=== PATIENT | male | born 1955 | race Caucasian/White ===

== ENCOUNTER 2017-01-31 09:15 | Outpatient (CLI) | payer OTHER ==
[2017-01-31 17:52] LABS: BASOPHILS % (AUTO) 0.2 %; EOSINOPHILS # (AUTO) 0.1 10^3/uL (0.0-0.7); EOSINOPHILS % (AUTO) 1.3 %; HCT - HEMATOCRIT 47.8 % (42.0-52.0); HGB - HEMOGLOBIN 15.8 g/dL (14.0-18.0); LYMPHOCYTES % (AUTO) 21.8 %; MEAN CORPUSCULAR VOLUME 90.9 fL (80.0-94.0); MEAN PLATELET VOLUME 8.3 fL (7.4-11.4); MONOCYTES # (AUTO) 0.5 10^3/uL (0.0-1.0); MONOCYTES % (AUTO) 5.9 %; NEUTROPHILS # (AUTO) 6.6 10^3/uL (1.5-6.6); NEUTROPHILS % (AUTO) 70.8 %; RED BLOOD COUNT 5.26 10^6/uL (4.70-6.10); RED CELL DISTRIBUTION WIDTH 14.1 % (12.0-15.0); UNCORRECTED WHITE BLOOD COUNT 9.3 x10^3/uL; WHITE BLOOD COUNT 9.3 x10^3/uL (4.8-10.8)
[2017-01-31 18:03] LABS: ALBUMIN/GLOBULIN RATIO 1.6 (1.0-2.2); BILIRUBIN,TOTAL 0.7 mg/dL (0.2-1.0); BUN - BLOOD UREA NITROGEN 22 mg/dL (6-20); CALCIUM 9.2 mg/dL (8.5-10.3); CARBON DIOXIDE - CO2 27 mmol/L (21-32); CHLORIDE 104 mmol/L (101-111); CHOLESTEROL 215 mg/dL; CREATININE 1.1 mg/dL (0.6-1.2); GFR - MDRD 68 (>89); GLUCOSE 97 mg/dL (70-100); HDL CHOLESTEROL 54 mg/dL; LDL/HDL RATIO 2.6 (<3.6); POTASSIUM 4.3 mmol/L (3.5-5.0); SODIUM 138 mmol/L (135-145); TOTAL PROTEIN 6.7 g/dL (6.7-8.2); TRIGLYCERIDES 88 mg/dL; VLDL CHOLESTEROL 18 mg/dL
[2017-01-31 18:26] LABS: THYROID STIMULATING HORMONE 1.19 uIU/mL (0.34-5.60)
[2017-01-31 18:33] LABS: FERRITIN 334.8 ng/mL (23.9-336.2); TOTAL T3 1.26 ng/mL (0.87-1.78)
[2017-01-31 19:47] LABS: PSA FREE 0.213 ng/mL (0.16-2.81)
[2017-01-31 19:48] LABS: PSA TOTAL 1.175 ng/mL (0.000-2.000)
[2017-01-31 19:51] LABS: FREE T3 3.44 pg/mL (2.5-3.9)
== END 2017-01-31 09:16 | disposition home or self-care (01) ==
LOC: LAB.F 09:15
PROVIDERS: ATTEND Family Medicine
DX: Z00.00 Encounter for general adult medical examination without abnormal findings (principal); E55.9 Vitamin D deficiency, unspecified; N40.1 Benign prostatic hyperplasia with lower urinary tract symptoms
CPT/HCPCS: 36415; 80053; 80061; 82306; 82728; 84154; 84439; 84443; 84480; 84481; 84482; 85025

== ENCOUNTER 2018-01-30 07:42 | Outpatient (CLI) | payer OTHER ==
[2018-01-30 10:57] LABS: BASOPHILS % (AUTO) 0.2 %; EOSINOPHILS # (AUTO) 0.1 10^3/uL (0.0-0.7); EOSINOPHILS % (AUTO) 1.4 %; HGB - HEMOGLOBIN 15.7 g/dL (14.0-18.0); LYMPHOCYTES % (AUTO) 26.9 %; MEAN CORPUSCULAR HEMOGLOBIN 30.6 pg (27.0-31.0); MEAN CORPUSCULAR HGB CONC 34.2 g/dL (32.0-36.0); MEAN CORPUSCULAR VOLUME 89.7 fL (80.0-94.0); MEAN PLATELET VOLUME 8.3 fL (7.4-11.4); MONOCYTES # (AUTO) 0.5 10^3/uL (0.0-1.0); MONOCYTES % (AUTO) 6.1 %; NEUTROPHILS # (AUTO) 4.9 10^3/uL (1.5-6.6); NEUTROPHILS % (AUTO) 65.4 %; PLT - PLATELET COUNT 258 10^3/uL (130-450); RED BLOOD COUNT 5.13 10^6/uL (4.70-6.10); RED CELL DISTRIBUTION WIDTH 13.6 % (12.0-15.0); WHITE BLOOD COUNT 7.5 x10^3/uL (4.8-10.8)
[2018-01-30 11:14] LABS: ALBUMIN 4.1 g/dL (3.2-5.5); ALBUMIN/GLOBULIN RATIO 1.5 (1.0-2.2); ALKALINE PHOSPHATASE 72 IU/L (42-121); ALT ALANINE AMINOTRANSFERASE 28 IU/L (10-60); AST ASPARTATE AMINOTRANSFERASE 23 IU/L (10-42); BUN - BLOOD UREA NITROGEN 22 mg/dL (6-20); CARBON DIOXIDE - CO2 28 mmol/L (21-32); CHLORIDE 104 mmol/L (101-111); CHOL/HDL RATIO 3.8 (<5.0); CHOLESTEROL 226 mg/dL; GFR - MDRD 75 (>89); GLUCOSE 97 mg/dL (70-100); HDL CHOLESTEROL 59 mg/dL; LDL CHOLESTEROL,CALCULATED 153 mg/dL; LDL/HDL RATIO 2.6 (<3.6); SODIUM 139 mmol/L (135-145); TOTAL PROTEIN 6.8 g/dL (6.7-8.2); VLDL CHOLESTEROL 14 mg/dL
[2018-01-30 11:21] LABS: PSA FREE 0.341 ng/mL (0.16-2.81)
[2018-01-30 11:22] LABS: PSA TOTAL 1.436 ng/mL (0.000-2.000)
[2018-01-30 11:25] LABS: FREE T3 3.72 pg/mL (2.5-3.9)
[2018-01-30 11:26] LABS: THYROID STIMULATING HORMONE 1.43 uIU/mL (0.34-5.60)
[2018-01-30 11:28] LABS: FREE T4 (FREE THYROXINE) 0.71 ng/dL (0.58-1.64)
[2018-01-30 11:33] LABS: FERRITIN 359.8 ng/mL (23.9-336.2); TOTAL T3 1.52 ng/mL (0.87-1.78)
[2018-01-30 14:18] LABS: HB2 TOTAL 16.8 g/dL; HEMOGLOBIN A1C 0.59 g/dL; HEMOGLOBIN A1C % 5.4 % (4.6-6.2)
[2018-02-02 10:57] LABS: HOMOCYSTEINE 12.9 umol/L (<11.4)
== END 2018-01-30 07:43 | disposition home or self-care (01) ==
LOC: LAB.F 07:42
PROVIDERS: ATTEND Family Medicine
DX: Z00.00 Encounter for general adult medical examination without abnormal findings (principal); R53.83 Other fatigue; E55.9 Vitamin D deficiency, unspecified; E03.9 Hypothyroidism, unspecified
CPT/HCPCS: 36415; 80053; 80061; 82306; 82626; 82728; 83036; 83090; 83721; 84154; 84439; 84443; 84480; 84481; 84482; 85025

== ENCOUNTER 2020-12-01 09:07 | Outpatient (CLI) | payer MEDICARE, OTHER ==
[2020-12-01 14:37] LABS: BASOPHILS % (AUTO) 0.4 %; EOSINOPHILS # (AUTO) 0.1 10^3/uL (0.0-0.7); EOSINOPHILS % (AUTO) 1.3 %; HCT - HEMATOCRIT 51.5 % (42.0-52.0); HGB - HEMOGLOBIN 16.6 g/dL (14.0-18.0); LYMPHOCYTES # (AUTO) 2.4 10^3/uL (1.5-3.5); LYMPHOCYTES % (AUTO) 25.2 %; MEAN CORPUSCULAR HEMOGLOBIN 30.3 pg (27.0-31.0); MEAN CORPUSCULAR HGB CONC 32.2 g/dL (32.0-36.0); MEAN PLATELET VOLUME 10.3 fL (7.4-11.4); MONOCYTES # (AUTO) 0.5 10^3/uL (0.0-1.0); MONOCYTES % (AUTO) 5.3 %; NEUTROPHILS # (AUTO) 6.6 10^3/uL (1.5-6.6); NEUTROPHILS % (AUTO) 67.5 %; PLT - PLATELET COUNT 266 10^3/uL (130-450); RED BLOOD COUNT 5.48 10^6/uL (4.70-6.10); RED CELL DISTRIBUTION WIDTH 13.9 % (12.0-15.0); WHITE BLOOD COUNT 9.7 x10^3/uL (4.8-10.8)
[2020-12-01 15:50] LABS: ALBUMIN 4.4 g/dL (3.2-5.5); ALBUMIN/GLOBULIN RATIO 1.6 (1.0-2.2); ALKALINE PHOSPHATASE 75 IU/L (42-121); ALT ALANINE AMINOTRANSFERASE 30 IU/L (10-60); AST ASPARTATE AMINOTRANSFERASE 24 IU/L (10-42); BILIRUBIN,TOTAL 0.6 mg/dL (0.2-1.0); BUN - BLOOD UREA NITROGEN 23 mg/dL (6-20); CALCIUM 9.1 mg/dL (8.5-10.3); CARBON DIOXIDE - CO2 27 mmol/L (21-32); CHLORIDE 102 mmol/L (101-111); CHOL/HDL RATIO 4.1 (<5.0); CHOLESTEROL 278 mg/dL; CREATININE 1.1 mg/dL (0.6-1.2); CRP HIGH SENSITIVITY 1.2 mg/L; GFR - MDRD 67 (>89); GLUCOSE 99 mg/dL (70-100); HDL CHOLESTEROL 68 mg/dL; LDL CHOLESTEROL,CALCULATED 192 mg/dL; LDL/HDL RATIO 2.8 (<3.6); POTASSIUM 4.2 mmol/L (3.5-5.0); SODIUM 138 mmol/L (135-145); TOTAL PROTEIN 7.2 g/dL (6.7-8.2); TRIGLYCERIDES 91 mg/dL; VLDL CHOLESTEROL 18 mg/dL
[2020-12-01 15:57] LABS: PSA FREE 0.25 ng/mL (0.16-2.81)
[2020-12-01 15:59] LABS: PSA TOTAL 1.349 ng/mL (0.000-2.000)
[2020-12-01 16:06] LABS: THYROID STIMULATING HORMONE 1.29 uIU/mL (0.34-5.60)
[2020-12-01 16:07] LABS: FREE T4 (FREE THYROXINE) 0.65 ng/dL (0.58-1.64)
[2020-12-01 16:08] LABS: FREE T3 3.47 pg/mL (2.5-3.9)
[2020-12-01 16:12] LABS: FERRITIN 322.3 ng/mL (23.9-336.2)
[2020-12-01 21:01] LABS: ESTIMATED AVERAGE GLUCOSE 114 mg/dL (70-100); HEMOGLOBIN A1c% 5.6 % (4.27-6.07)
== END 2020-12-01 09:08 | disposition home or self-care (01) ==
LOC: LAB.S 09:07
PROVIDERS: ATTEND Family Medicine
DX: E78.5 Hyperlipidemia, unspecified (principal); R53.83 Other fatigue; D64.9 Anemia, unspecified; E55.9 Vitamin D deficiency, unspecified; R73.09 Other abnormal glucose; E03.9 Hypothyroidism, unspecified; N40.0 Benign prostatic hyperplasia without lower urinary tract symptoms
CPT/HCPCS: 36415; 80053; 80061; 82306; 82626; 82728; 83036; 83090; 83721; 84153; 84154; 84439; 84443; 84480; 84481; 84482; 85025; 86141

== ENCOUNTER 2021-04-20 09:15 | Outpatient (CLI) | payer MEDICARE, OTHER ==
[2021-04-20 14:51] LABS: ALBUMIN 4.1 g/dL (3.2-5.5); ALBUMIN/GLOBULIN RATIO 1.4 (1.0-2.2); ALKALINE PHOSPHATASE 77 IU/L (42-121); ALT ALANINE AMINOTRANSFERASE 22 IU/L (10-60); AST ASPARTATE AMINOTRANSFERASE 22 IU/L (10-42); BILIRUBIN,TOTAL 0.7 mg/dL (0.2-1.0); BUN - BLOOD UREA NITROGEN 25 mg/dL (6-20); CALCIUM 9.5 mg/dL (8.5-10.3); CARBON DIOXIDE - CO2 27 mmol/L (21-32); CHLORIDE 103 mmol/L (101-111); CHOL/HDL RATIO 3.5 (<5.0); CHOLESTEROL 234 mg/dL; CREATININE 1.1 mg/dL (0.6-1.2); CRP HIGH SENSITIVITY 1.4 mg/L; GFR - MDRD 67 (>89); GLUCOSE 108 mg/dL (70-100); HDL CHOLESTEROL 66 mg/dL; LDL CHOLESTEROL,CALCULATED 155 mg/dL; LDL/HDL RATIO 2.3 (<3.6); POTASSIUM 4.5 mmol/L (3.5-5.0); SODIUM 138 mmol/L (135-145); TRIGLYCERIDES 63 mg/dL; VLDL CHOLESTEROL 13 mg/dL
[2021-04-20 21:24] LABS: ESTIMATED AVERAGE GLUCOSE 111 mg/dL (70-100); HEMOGLOBIN A1c% 5.5 % (4.27-6.07)
[2021-04-21 12:11] LABS: HOMOCYSTEINE 13.5 umol/L (<11.4)
== END 2021-04-20 09:16 | disposition home or self-care (01) ==
LOC: LAB.S 09:15
PROVIDERS: ATTEND Family Medicine
DX: E78.5 Hyperlipidemia, unspecified (principal); R73.09 Other abnormal glucose; R53.83 Other fatigue
CPT/HCPCS: 36415; 80053; 80061; 82626; 83036; 83090; 83721; 86141

== ENCOUNTER 2021-11-21 07:08 | Day surgery (SDC) | payer MEDICARE, OTHER ==
[2021-11-21] MEDS ORDERED: LACTATED RINGERS 1,000 ML IV ONE ×2 (07:26→09:33)
[2021-11-21] MEDS ORDERED: PROPOFOL 500 MG/50 ML 500 MG/50 ML VIAL ONE (09:13)
--- NOTE | 2021-11-21 09:29 | ANESTHESIA ---
Pre-Anesthesia VS, & Labs - Diagnosis hx of polyps - Procedure colonoscopy Vital Signs: Temp Pulse Resp BP Pulse Ox 36.4 C L 73 16 129/99 H 100 11/21/21 07:26 11/21/21 07:26 11/21/21 07:26 11/21/21 07:26 11/21/21 07:26 Height: 6 ft Weight (kg): 79.4 kg Body Mass Index: 23.7 BMI Classification: Healthy weight - NPO >8 hours Home Medications and Allergies Home Medications: Ambulatory Orders No Known Home Medications 11/16/21 No Known Home Medications 11/16/21 Allergies/Adverse Reactions: Allergies Allergy/AdvReac Type Severity Reaction Status Date / Time Penicillins Allergy Unknown Verified 11/21/21 06:56 Anes History & Medical History - Anesthetic History Anesthesia Complications: reports: No previous complications Family history of Anesthesia Complications: Denies Family history of Malignant Hyperthermia: Denies - Medical History Cardiovascular: reports: None Pulmonary: reports: Sleep apnea Gastrointestinal: reports: Colon polyps Urinary: reports: None Musculoskeletal: reports: None Endocrine/Autoimmune: reports: None Skin: reports: None Smoking Status: Current every day smoker - Surgical History General: reports: Colonoscopy Orthopedic: reports: Arthroscopic surgery Exam General: Alert, Oriented x3 Dental: WNL Mouth Openin Fingerbreadth Neck Mobility: Normal Mallampati classification: II Thyromental Distance: 4-6 cm Respiratory: Lungs clear Cardiovascular: Regular rate Plan Anesthesia Type: Total IV Consent for Procedure(s) Verified and Reviewed: Yes Code Status: Attempt Resuscitation ASA classification: 2-Mild systemic disease Is this case an emergency?: No
[2021-11-21] MEDS ORDERED: ONDANSETRON 4 MG/2 ML VIAL ONE (09:37)
[2021-11-21 10:03] VITALS: BP 109/76
--- NOTE | 2021-11-21 13:18 | ANESTHESIA POST OP EVALUATION ---
Anesthesia Post Eval - Post Anesthesia Eval Vitals: Last Vital Signs Temp 36.6 C 11/21/21 10:00 Pulse 65 11/21/21 10:00 Resp 16 11/21/21 10:00 BP 109/76 11/21/21 10:00 Pulse Ox 100 11/21/21 10:00 CV Function Including HR & BP: Stable Pain Control: Satisfactory Nausea & Vomiting: Negative Mental Status: Baseline Respiratory Status: Airway Patent Hydration Status: Satisfactory Anesthesia Complications: None
== END 2021-11-21 07:09 | disposition home or self-care (01) ==
LOC: SDS 07:08
PROVIDERS: ATTEND Surgery
DX: Z12.11 Encounter for screening for malignant neoplasm of colon (principal); K64.8 Other hemorrhoids; G47.30 Sleep apnea, unspecified; F17.200 Nicotine dependence, unspecified, uncomplicated; Z86.010 Personal history of colon polyps
CPT/HCPCS: G0105; J7120

== ENCOUNTER 2022-02-06 09:14 | Outpatient (CLI) | payer MEDICARE, OTHER ==
--- NOTE | 2022-02-06 09:12 | SLEEP CARE CONSULTATION ---
Information from patient questionnaire entered by Layla Lerma. I have reviewed and concur with the information entered by Layla Lerma. This document represents the service I personally performed and the decisions made by , Haylee Ross ARNP. History of Present Illness Service Date and Time: 02/06/2022 0840 Previous diagnosis: Mild, Obstructive Sleep Apnea-Hypopnea Syndrome AHI: 7.9 Reason for follow up: first compliance (RESMED ) Equipment type: CPAP (RESMED) Equipment obtained from: [employer] (got initial supplies) Mask style: Full face Mask brand: Resmed ([id number]) Backup mask available: No (will keep old mask when replaced) Last cushion change: 1 month Prior sleep studies: Yes Year and Where: 04/2021 Type of Sleep Study: Home sleep study HPI additional information: ESTELITA BAE was diagnosed to have mild, AHI 7.9, obstructive sleep apnea- hypopnea syndrome and returns via video telehealth visit today for CPAP therapy first compliance follow-up. Sleep Study - Results Type of Sleep Study: Home sleep study Prior sleep studies: Yes Year and Where: 04/2021 CPAP Compliance Data - Data Reviewed with Patient Average duration of nightly device use: 6 HRS, 19 MIN Compliance rate %: 83 (01/06/2022-02/04/2022; 27/30 days used) Current pressure setting (cmH2O): 4-15 (median 4.8, avg 8.5, max 10.3) Average residual AHI: 4.0 Central apnea: 0.2 Obstructive apnea: 0.7 Average large leak: 14.5 lpm Subjective Missed days of use due to: reports: illness, travel Patient concerns: reports: dry mouth, nose, throat (occasional dry throat). denies: aerophagia, mask discomfort, air blowing in eyes, mask leak noise, condensation in mask/hose, nasal congestion, epistaxis Observed to snore while using device: No Current pressure setting perceived as: comfortable On therapy, patient: reports: sleeping better, awakening more refreshed, being more awake and alert during the day, more rested overall. denies: drowsiness while driving Initial [place] Sleepiness Scale score: 9 (11/02/2021) Current [place] Sleepiness Scale score: 3 (02/06/2022) Allergies and Home Medications Known drug allergies: Yes (PCN) Drug allergies reviewed: Yes (penicillin) Home medication list reviewed: Yes (no changes) Review of Systems Review of systems same as previous: Yes (no changes) Physical Exam Vital signs obtained and entered by: VIA PHONE Height: 6 ft (PER PT ) Weight: 180 lb (PER PT ) Body Mass Index: 24.4 BMI Classification: Normal Impression and Plan 1. Obstructive Sleep Apnea-Hypopnea Syndrome, mild, with good treatment compliance and good apnea control. On CPAP therapy, the patient has better sleep quality and is more rested overall. Patient has significant improvement of their sleep apnea and are satisfied with current CPAP therapy. The patients pressure will be changed to autoCPAP 7-11 cmH20 to reflect pressures being used. Patient advised to contact me if pressure change is uncomfortable so that it can be adjusted. Goals for apnea control discussed. Patient's apnea severity and rationale for treatment to reduce apnea, improve sleep quality and reduce cardiovascular and cerebrovascular events was reviewed. * Change auto CPAP pressure to 7-11 cmH2O * Notify me if snoring with mask or feeling that the pressure is too much or too little * Maintain healthy weight * Call this office if any problems using CPAP * Return for follow up in 1-2 months, or sooner if concerns arise Counseling Topics: Spare mask Visit Type: Telehealth Video Video Type: Doximity Patient Location: Home Location of Provider: Office Patient agrees and consents to this telehealth visit type: Yes Patient agrees to have their insurance billed: Yes Time Spent with Patient (minutes): 29 Provider Statement: I spent 100% of the Telehealth Video Call with the patient with greater than 50% spent counseling the patient and coordination of care.
== END 2022-02-06 09:15 | disposition home or self-care (01) ==
LOC: SC 09:14
PROVIDERS: ATTEND Nurse Practitioner Family
DX: G47.33 Obstructive sleep apnea (adult) (pediatric) (principal)

== ENCOUNTER 2022-04-05 09:00 | Outpatient (CLI) | payer MEDICARE, OTHER ==
--- NOTE | 2022-04-05 09:17 | SLEEP CARE CONSULTATION ---
Information from patient questionnaire entered by Chito Lerma. I have reviewed and concur with the information entered by Chito Lerma. This document represents the service I personally performed and the decisions made by , Haylee Ross ARNP. History of Present Illness Service Date and Time: 04/05/2022 0900 Previous diagnosis: Mild, Obstructive Sleep Apnea-Hypopnea Syndrome AHI: 7.9 Reason for follow up: other (TWO MONTH F/U ) Equipment type: CPAP (RESMED Airsense 11, s/u 11/2021) Equipment obtained from: [employer] (getting supplies) Mask style: Full face Backup mask available: No (will keep old mask when replaced) Last cushion change: 5 months Prior sleep studies: Yes Year and Where: 04/2021 Type of Sleep Study: Home sleep study HPI additional information: ESTELITA BAE was diagnosed to have mild, AHI 7.9, obstructive sleep apnea- hypopnea syndrome and returns via video telehealth visit today for CPAP therapy two month follow-up. Sleep Study - Results Type of Sleep Study: Home sleep study Prior sleep studies: Yes Year and Where: 04/2021 CPAP Compliance Data - Data Reviewed with Patient Average duration of nightly device use: 6 HRS 16 MIN Compliance rate %: 80 (02/01/22-04/01/22; 52/60 days used) Current pressure setting (cmH2O): 7-11 Average residual AHI: 3.3 Central apnea: 0.2 Obstructive apnea: 0.4 Average large leak: 13.9 lpm Subjective Missed days of use due to: reports: travel Patient concerns: reports: dry mouth, nose, throat (occasionally). denies: aerophagia, mask discomfort, air blowing in eyes, mask leak noise, condensation in mask/hose, nasal congestion, epistaxis Observed to snore while using device: No Current pressure setting perceived as: comfortable On therapy, patient: reports: sleeping better, awakening more refreshed, being more awake and alert during the day, more rested overall. denies: drowsiness while driving Initial [place] Sleepiness Scale score: 9 (11/02/2021) Current [place] Sleepiness Scale score: 8 (04/05/2022) Allergies and Home Medications Drug allergies reviewed: Yes (penicillin) Home medication list reviewed: Yes (no changes) Review of Systems Review of systems same as previous: Yes (no changes) Physical Exam Vital signs obtained and entered by: VIA PHONE CHITO Haynes MA Height: 6 ft (PER PT ) Weight: 175 lb (PER PT) Body Mass Index: 23.7 BMI Classification: Normal Impression and Plan 1. Obstructive Sleep Apnea-Hypopnea Syndrome, mild, with good treatment compliance and good apnea control. On CPAP therapy, the patient has better sleep quality and is more rested overall. Patient is comfortable using his fullface mask but he would like to try something with less size on his face. He would like to try a nasal mask. I will write for a mask fitting for a nasal mask. He is aware that he may end up paying if he is not eligible for supplies. Patient has significant improvement of their sleep apnea and are satisfied with current CPAP therapy. Patient has some occasional mouth dryness but states it is not problematic. Patient denies problems with nasal congestion, epistaxis, skin irritation or aerophagia. Patient's apnea severity and rationale for treatment to reduce apnea, improve sleep quality and reduce cardiovascular and cerebrovascular events was reviewed. * Continue auto CPAP pressure at 7-11 cmH2O * Mask fitting for a nasal mask * Notify me if snoring with mask or feeling that the pressure is too much or too little * Call this office if any problems using CPAP * Return for follow up in 6 months, or sooner if concerns arise Counseling Topics: Spare mask Visit Type: Telehealth Video Video Type: Doximity Patient Location: Home Location of Provider: Office Patient agrees and consents to this telehealth visit type: Yes Patient agrees to have their insurance billed: Yes Time Spent with Patient (minutes): 16 Provider Statement: I spent 100% of the Telehealth Video Call with the patient with greater than 50% spent counseling the patient and coordination of care.
== END 2022-04-05 23:59 | disposition home or self-care (01) ==
LOC: SC 09:00
PROVIDERS: ATTEND Nurse Practitioner Family
DX: G47.33 Obstructive sleep apnea (adult) (pediatric) (principal)

== ENCOUNTER 2023-02-07 08:21 | Outpatient (CLI) | payer MEDICARE, OTHER ==
[2023-02-07 14:57] LABS: BASOPHILS % (AUTO) 0.3 %; EOSINOPHILS # (AUTO) 0.1 10^3/uL (0.0-0.7); EOSINOPHILS % (AUTO) 1.2 %; HCT - HEMATOCRIT 50.2 % (42.0-52.0); HGB - HEMOGLOBIN 15.9 g/dL (14.0-18.0); LYMPHOCYTES # (AUTO) 2.3 10^3/uL (1.5-3.5); LYMPHOCYTES % (AUTO) 20.7 %; MEAN CORPUSCULAR HEMOGLOBIN 29.8 pg (27.0-31.0); MEAN CORPUSCULAR HGB CONC 31.7 g/dL (32.0-36.0); MEAN PLATELET VOLUME 10.5 fL (7.4-11.4); MONOCYTES # (AUTO) 0.6 10^3/uL (0.0-1.0); MONOCYTES % (AUTO) 5.6 %; NEUTROPHILS # (AUTO) 8.1 10^3/uL (1.5-6.6); NEUTROPHILS % (AUTO) 71.9 %; PLT - PLATELET COUNT 267 10^3/uL (130-450); RED BLOOD COUNT 5.34 10^6/uL (4.70-6.10); WHITE BLOOD COUNT 11.3 x10^3/uL (4.8-10.8)
[2023-02-07 15:21] LABS: ESTIMATED AVERAGE GLUCOSE 108 mg/dL (70-100); HEMOGLOBIN A1c% 5.4 % (4.27-6.07)
[2023-02-07 17:25] LABS: % IRON SATURATION 31 % (20-50); ALBUMIN 4.5 g/dL (3.2-5.5); ALKALINE PHOSPHATASE 78 IU/L (42-121); ALT ALANINE AMINOTRANSFERASE 18 IU/L (10-60); AST ASPARTATE AMINOTRANSFERASE 19 IU/L (10-42); BILIRUBIN,TOTAL 0.5 mg/dL (0.2-1.0); BUN - BLOOD UREA NITROGEN 19 mg/dL (6-20); CALCIUM 9.8 mg/dL (8.5-10.3); CARBON DIOXIDE - CO2 28 mmol/L (21-32); CHLORIDE 105 mmol/L (101-111); CHOL/HDL RATIO 3.8 (<5.0); CHOLESTEROL 250 mg/dL; CREATININE 1.2 mg/dL (0.6-1.3); CRP HIGH SENSITIVITY 1.45 mg/L; GFR - MDRD 60 (>89); GLUCOSE 90 mg/dL (74-104); HDL CHOLESTEROL 65 mg/dL; IRON 106 ug/dL (50-212); LDL CHOLESTEROL,CALCULATED 169 mg/dL; LDL/HDL RATIO 2.6 (<3.6); POTASSIUM 4.3 mmol/L (3.5-4.5); SODIUM 138 mmol/L (135-145); TOTAL IRON BINDING CAPACITY 344 ug/dL (250-450); TOTAL PROTEIN 6.8 g/dL (6.4-8.9); TRANSFERRIN 246 mg/dL (203-362); TRIGLYCERIDES 80 mg/dL (48-352); VLDL CHOLESTEROL 16 mg/dL
[2023-02-07 17:49] LABS: THYROID STIMULATING HORMONE 1.93 uIU/mL (0.34-5.60)
[2023-02-07 17:55] LABS: FERRITIN 290.3 ng/mL (23.9-336.2)
[2023-02-08 07:08] LABS: INSULIN 8.2 uIU/mL (2.6-24.9)
== END 2023-02-07 08:22 | disposition home or self-care (01) ==
LOC: LAB.S 08:21
PROVIDERS: ATTEND Family Medicine
DX: Z00.00 Encounter for general adult medical examination without abnormal findings (principal); E78.5 Hyperlipidemia, unspecified; R73.09 Other abnormal glucose; E72.11 Homocystinuria; R53.83 Other fatigue; G47.33 Obstructive sleep apnea (adult) (pediatric); N40.1 Benign prostatic hyperplasia with lower urinary tract symptoms; E83.10 Disorder of iron metabolism, unspecified; E55.9 Vitamin D deficiency, unspecified
CPT/HCPCS: 36415; 80053; 80061; 82306; 82626; 82728; 83036; 83090; 83525; 83540; 83721; 84153; 84154; 84439; 84443; 84466; 84480; 84481; 84482; 85025; 86141

== ENCOUNTER 2023-02-14 07:41 | Outpatient (CLI) | payer MEDICARE, OTHER ==
--- NOTE | 2023-02-14 08:40 | Ultrasound Report ---
PROCEDURE: Aorta Screening INDICATIONS: SCREENING FOR AAA TECHNIQUE: Real time scanning was performed of the aorta and iliac arteries, with image documentatio n. COMPARISON: CT abdomen and pelvis dated 11/18/2019 FINDINGS: Aorta: Proximal aortic diameter measures 2.5 x 2.6 cm. Mid-aorta measures 2.0 x 1.9 cm. Distal aor tic diameter is 1.8 x 1.8 cm. Iliac arteries: Right common iliac artery measures 1.0 x 0.9 cm. Left common iliac artery measures 0.9 x 1.1 cm. Mild atherosclerotic plaques noted in the abdominal aorta. IMPRESSION: Atherosclerosis. No evidence for abdominal aortic aneurysms. Recommended intervals for follow-up imaging of ectatic aortas and abdominal aortic aneurysms, per ACR consensus guidelines: 2.5-2.9 cm: 5 years 3.0-3.4 cm: 3 years 3.5-3.9 cm: 2 years 4.0-4.4 cm: 1 year 4.5-4.9 cm: 6 months + endovascular referral 5.0-5.5 cm: 3-6 months + endovascular referral Reviewed by: Herbert Malagon MD on 02/14/2023 8:38 AM PST Approved by: Herbert Malagon MD on 02/14/2023 8:38 AM PST Station ID: [id number]
== END 2023-02-14 07:42 | disposition home or self-care (01) ==
LOC: DI 07:41
PROVIDERS: ATTEND Family Medicine
DX: Z13.6 Encounter for screening for cardiovascular disorders (principal); I70.90 Unspecified atherosclerosis; Z87.891 Personal history of nicotine dependence

== ENCOUNTER 2023-10-07 09:35 | Outpatient (CLI) | payer MEDICARE, OTHER ==
--- NOTE | 2023-10-07 10:09 | Sleep Patient Instructions ---
Sleep Center Visit Summary - Patient Visit Information Reason for Visit: Annual follow-up - Patient Instructions Additional Instructions: You will continue with CPAP therapy with pressure set at 7-11 cmH2O. A supply prescription will be updated with your DME. Please follow up with the sleep care office in 1-2 months. - Clinic Information Contact: [facility] [address] [place] [address] [email or web address] T: [phone]
--- NOTE | 2023-10-07 10:16 | SLEEP CARE CONSULTATION ---
Information from patient questionnaire entered by Chito Lemra. I have reviewed and concur with the information entered by Chito Lerma. This document represents the service I personally performed and the decisions made by , Haylee Ross ARNP. History of Present Illness Service Date and Time: 10/07/2023 0935 Previous diagnosis: Mild, Obstructive Sleep Apnea-Hypopnea Syndrome AHI: 7.9 (in 2021) Reason for follow up: annual (LAST SEEN 09/2022) Equipment type: CPAP (RESMED Airsense 11, s/u 11/2021) Equipment obtained from: [employer] (needs to order supplies) Mask style: Nasal pillows Backup mask available: No Last cushion change: over 3 months Prior sleep studies: Yes Year and Where: 04/2021 Type of Sleep Study: Home sleep study HPI additional information: ESTELITA BAE was diagnosed to have mild, AHI 7.9, obstructive sleep apnea- hypopnea syndrome and returned today for CPAP therapy annual follow-up. Sleep Study - Results Type of Sleep Study: Home sleep study Prior sleep studies: Yes Year and Where: 04/2021 CPAP Compliance Data - Data Reviewed with Patient Average duration of nightly device use: 5 HRS 33 MINS Compliance rate %: 57 (05/28/22-05/27/23; 251/365 days used) Current pressure setting (cmH2O): 7-11 Average residual AHI: 2.5 Central apnea: 0.2 Obstructive apnea: 0.6 Hypopnea: 0.1 Average large leak: 14.5 L/min Subjective Missed days of use due to: reports: illness, other (got out of habit of using CPAP) Patient concerns: denies: aerophagia, mask discomfort, air blowing in eyes, mask leak noise, condensation in mask/hose, nasal congestion, dry mouth, nose, thr oat, epistaxis Observed to snore while using device: No Current pressure setting perceived as: comfortable On therapy, patient: reports: sleeping better, more rested overall. denies: drowsiness while driving Initial [place] Sleepiness Scale score: 9 (11/02/2021) Current [place] Sleepiness Scale score: 7 (10/07/23) Allergies and Home Medications Known drug allergies: Yes (as listed) Drug allergies reviewed: Yes Home medication list reviewed: Yes (no changes) Allergy and home medication list: Allergies Penicillins Allergy (Verified 10/03/23 13:16) Unknown Review of Systems Review of systems same as previous: Yes (NO CHANGE) Physical Exam Vital signs obtained and entered by: CHITO Haynes MA Blood Pressure: 119/81 (RIGHT ARM) Cuff size: regular Heart Rate: 87 O2 Saturation: 98 Height: 6 ft Weight: 189 lb 9.6 oz Body Mass Index: 25.7 BMI Classification: Overweight Impression and Plan 1. Obstructive Sleep Apnea-Hypopnea Syndrome, mild, with fair treatment compliance and good apnea control. On CPAP therapy, the patient has better sleep quality and is more rested overall. He states he was doing very well with using his CPAP until he got Covid and could not use the CPAP for a month. Then he tried to use it again but had gotten out of the habit. He then decided to see how he would do without the CPAP. He thinks he has been doing okay but that he used to sleep a little better and fell a bit more rested when using his CPAP. He comes back in today with resolve to restart using his CPAP. He has misplaced his mask and needs to find it or order more to use the CPAP. I set him up with a ResMed AirFit N30i, small cushion, to use until he is able to get supplies. His compliance is down from the months of not using his CPAP. I will have him return to the office in 1-2 months to recheck compliance and see how he is doing. Patient's apnea severity and rationale for treatment to reduce apnea, improve sleep quality and reduce cardiovascular and cerebrovascular events was reviewed. 2. Overweight, minimal. Currently patients BMI is 25.7. Obesity increases the risk of apnea, CPAP pressure requirements and overall health risks especially cardiovascular and diabetes. Thus patient is advised to maintain healthy weight. * Continue auto CPAP pressure at 7-11 cmH2O * Update supply prescription. * provided with nasal cushion mask, Resmed AirFit N30i, small cushion * Notify me if snoring with mask or feeling that the pressure is too much or too little * Call this office if any problems using CPAP * Return for follow up in 1-2 months, or sooner if concerns arise Counseling Topics: Weight loss health impact Prescriptions: Device supplies Follow up with Sleep Care in: 1-2 months (to recheck compliance) Visit Type: In Office Time Spent with Patient (minutes): 26 Provider Statement: I spent 100% of the Face to Face Visit with the patient with greater than 50% spent counseling the patient and coordination of care.
[2023-10-07 10:18] VITALS: BP 119/81; O2SAT 98
== END 2023-10-07 09:36 | disposition home or self-care (01) ==
LOC: SC 09:35
PROVIDERS: ATTEND Nurse Practitioner Family
DX: G47.33 Obstructive sleep apnea (adult) (pediatric) (principal); E66.3 Overweight; Z68.25 Body mass index [BMI] 25.0-25.9, adult
CPT/HCPCS: 99213; G0463; 99212

== ENCOUNTER 2023-11-21 09:07 | Outpatient (CLI) | payer MEDICARE, OTHER ==
--- NOTE | 2023-11-21 09:33 | Sleep Patient Instructions ---
Sleep Center Visit Summary - Patient Visit Information Reason for Visit: 6-week follow-up for PAP therapy - Patient Instructions Additional Instructions: You were here for follow up of CPAP therapy. You will be continued on CPAP therapy with pressure at 7-11 cmH2O. You should follow up with sleep care in 6 months. You may contact us sooner for any questions or concerns. - Clinic Information Contact: [facility] [address] [place] [id number] [email or web address] T: [phone]
--- NOTE | 2023-11-21 09:38 | SLEEP CARE CONSULTATION ---
Information from patient questionnaire entered by Eitan Rider. I have reviewed and concur with the information entered by Eitan Rider. This document represents the service I personally performed and the decisions made by , Haylee Ross ARNP. History of Present Illness Service Date and Time: 11/21/2023 09 Previous diagnosis: Mild, Obstructive Sleep Apnea-Hypopnea Syndrome AHI: 7.9 (in 2021) Reason for follow up: other (6-Week F/U -Pressure change) Equipment type: CPAP (RESMED Airsense 11, s/u 11/2021) Equipment obtained from: [employer] ([employer] supplies) Mask style: Nasal pillows Mask brand: Resmed (AirFit P10) Backup mask available: No Last cushion change: 2 months Prior sleep studies: Yes Year and Where: 04/2021 Type of Sleep Study: Home sleep study HPI additional information: ESTELITA BAE was diagnosed to have mild, AHI 7.9, obstructive sleep apnea- hypopnea syndrome and returned today for CPAP therapy six week with pressure change follow-up. Sleep Study - Results Type of Sleep Study: Home sleep study Prior sleep studies: Yes Year and Where: 04/2021 CPAP Compliance Data - Data Reviewed with Patient Average duration of nightly device use: 3 h 35 mins Compliance rate %: 20 ( days used) Current pressure setting (cmH2O): 7-11 Average residual AHI: 1.9 Central apnea: 1 Obstructive apnea: 0.4 Hypopnea: 0.1 Average large leak: 4.4 L/min Subjective Missed days of use due to: reports: mask issues, illness (Covid), other (sleep issues) Patient concerns: reports: nasal congestion, dry mouth, nose, throat (occasionally). denies: aerophagia, mask discomfort, air blowing in eyes, mask leak noise, condensation in mask/hose, epistaxis Observed to snore while using device: No Current pressure setting perceived as: comfortable On therapy, patient: reports: sleeping better, awakening more refreshed, being more awake and alert during the day, more rested overall. denies: drowsiness while driving Initial [place] Sleepiness Scale score: 9 (11/02/2021) Current [place] Sleepiness Scale score: 4 (11/21/2023) Allergies and Home Medications Known drug allergies: Yes (as listed) Drug allergies reviewed: Yes Home medication list reviewed: Yes (no changes) Allergy and home medication list: Allergies Penicillins Allergy (Verified 10/07/23 09:47) Unknown Review of Systems Review of systems same as previous: Yes (no changes) Physical Exam Vital signs obtained and entered by: Haylee Marion NP Blood Pressure: 138/83 Cuff size: regular (left arm) Heart Rate: 69 O2 Saturation: 100 Height: 6 ft Weight: 183 lb 12.8 oz Body Mass Index: 24.9 BMI Classification: Normal Impression and Plan 1. Obstructive Sleep Apnea-Hypopnea Syndrome, mild, with fair treatment compliance and good apnea control. On CPAP therapy, the patient has better sleep quality and is more rested overall. He has significant improvement in his sleep apnea however his compliance is still sub-optimal. He got COVID which made it difficult for him to wear the mask with the congestion in his nose. In the last week he has been trying more and increasing his compliance. I will have him return in 6 months just to check in to see how he is doing. He voiced understanding and agreement with this plan of care. Patient's apnea severity and rationale for treatment to reduce apnea, improve sleep quality and reduce cardiovascular and cerebrovascular events was reviewed. * Continue auto CPAP pressure at 7-11 cmH2O * Notify me if snoring with mask or feeling that the pressure is too much or too little * Call this office if any problems using CPAP * Return for follow up in 6 months, or sooner if concerns arise This note may have been all or partially generated using voice recognition software. Although every effort is made to edit content, automatic machine attendant errors may occur. Occasional wrongword or "soundalike" substitutions may have occurred due to the inherent limitations of voice recognition software. Please read the note carefully and recognize, using context, where these substitutions have occurred. Counseling Topics: Spare mask Follow up with Sleep Care in: 6 months Visit Type: In Office Time Spent with Patient (minutes): 22 Provider Statement: I spent 100% of the Face to Face Visit with the patient with greater than 50% spent counseling the patient and coordination of care.
[2023-11-21 09:45] VITALS: BP 138/83; O2SAT 100
== END 2023-11-21 09:08 | disposition home or self-care (01) ==
LOC: SC 09:07
PROVIDERS: ATTEND Nurse Practitioner Family
DX: G47.33 Obstructive sleep apnea (adult) (pediatric) (principal); Z86.16 Personal history of COVID-19
CPT/HCPCS: 99213; G0463; 99212